=== PATIENT | female | born 1990 ===

== ENCOUNTER 2020-05-25 14:21 | Emergency (ER) | payer MEDICAID ==
[~2020-05-25] VITALS: Ht 172.7 cm; Wt 90.7 kg
[2020-05-25 14:21] VITALS: BP 155/115
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
[2020-05-25 14:55] VITALS: BP 155/115
[2020-05-25] MEDS ORDERED: LORazepam Inj 2mg/ml 1ml IM ONE (15:00)
[2020-05-25] MEDS ORDERED: DiphenhydrAMINE 50mg/ml Inj IM ONE (15:00)
[2020-05-25] MEDS ORDERED: Haloperidol 5mg/ml Inj IM ONE (15:00)
== END 2020-05-25 14:55 | disposition left against medical advice (07) ==
LOC: EDBD 14:21 → EMR 14:50
DX: F68.8 Other specified disorders of adult personality and behavior (principal)
CPT/HCPCS: 99281